=== PATIENT | male | born 1935 | race Caucasian/White ===

== ENCOUNTER 2017-11-09 11:26 | Outpatient (CLI) | payer OTHER ==
[~2017-11-09 11:26] MED LIST: ARICEPT10 MG; ASPIR 8181 MG; DILTIAZEM ER240 M2; DOCUSOL PLUS M1 EACH; GLIMEPIRIDE4 MG; LUNESTA2 MG; METFORMIN HCL500 MG; SYNTHROID175 MCG
== END 2017-11-09 13:00 | disposition home or self-care (01) ==
LOC: MRI 11:26
DX: G45.8 Other transient cerebral ischemic attacks and related syndromes (principal)
CPT/HCPCS: 70544; 70548; A9579

== ENCOUNTER 2017-11-20 08:36 | Outpatient (CLI) | payer OTHER | END 2017-11-20 08:51 | disposition home or self-care (01) | LOC: SONOGRAMA 08:36 | DX: K29.30 Chronic superficial gastritis without bleeding (principal); K74.60 Unspecified cirrhosis of liver; K76.0 Fatty (change of) liver, not elsewhere classified; K30 Functional dyspepsia; K75.81 Nonalcoholic steatohepatitis (NASH); R74.0 Nonspecific elevation of levels of transaminase and lactic acid dehydrogenase [LDH]; K70.30 Alcoholic cirrhosis of liver without ascites ==

== ENCOUNTER 2018-08-10 10:50 | Outpatient (CLI) | payer OTHER | END 2018-08-10 15:05 | disposition home or self-care (01) | LOC: TOM 10:50 | DX: S06.5X0A Traumatic subdural hemorrhage without loss of consciousness, initial encounter (principal) ==

== ENCOUNTER 2018-09-28 09:58 | Outpatient (CLI) | payer OTHER | END 2018-09-28 10:03 | disposition home or self-care (01) | LOC: SONOGRAMA 09:58 → MAMO-SONO 11:15 | DX: K70.30 Alcoholic cirrhosis of liver without ascites (principal) ==